=== PATIENT | male | born 1990 | race Two or more races ===

== ENCOUNTER 2018-01-21 02:29 | Emergency (ER) | payer SELFPAY ==
[2018-01-21 02:37] VITALS: BP 145/88; PULSE 91; RESP 17; TEMP 97.6; O2SAT 100
--- NOTE | 2018-01-21 03:52 | ED PDOC ---
HPI: Psych/Substance Abuse Time Seen by Provider: 01/21/18 02:42 Chief Complaint (Nursing): Alcohol Ingestion Chief Complaint (Provider): Alcohol Ingestion History Per: Patient History/Exam Limitations: no limitations Onset/Duration Of Symptoms: Hrs Current Symptoms Are (Timing): Still Present Suicide/Self Injury Attempted (Context): None Modifying Factor(s): Alcohol Additional Complaint(s): 27 y/o male with a history of alcohol abuse presents to the ED for public intoxication. Patient admits to drinking tonight. Patient states he was too intoxicated to walk home and therefore fell asleep in front of bushes by the bar where he was previously drinking. At this time, patient states he wants to go home. Denies drug use and head trauma. PMD: none Past Medical History Vital Signs: Last Vital Signs Temp 97.6 F 01/21/18 02:35 Pulse 91 H 01/21/18 02:35 Resp 17 01/21/18 02:35 BP 145/88 01/21/18 02:35 Pulse Ox 100 01/21/18 02:35 - Medical History PMH: No Chronic Diseases - Surgical History Surgical History: No Surg Hx - Family History Family History: States: Unknown Family Hx - Social History Alcohol: > 2 Drinks/Day - Allergies Allergies/Adverse Reactions: Allergies Allergy/AdvReac Type Severity Reaction Status Date / Time No Known Allergies Allergy Verified 01/21/18 02:37 Review of Systems ROS Statement: Except As Marked, All Systems Reviewed And Found Negative Psych: Positive for: Other (Public Alcohol Intoxication) Physical Exam - Reviewed Nursing Documentation Reviewed: Yes Vital Signs Reviewed: Yes - Physical Exam Appears: Positive for: No Acute Distress (but intoxicated appearing) Head Exam: Positive for: ATRAUMATIC, NORMOCEPHALIC Skin: Positive for: Normal Color, Warm, Dry Eye Exam: Positive for: Normal appearance, EOMI, PERRL Neck: Positive for: Normal, Painless ROM Cardiovascular/Chest: Positive for: Regular Rate, Rhythm. Negative for: Murmur Respiratory: Positive for: Normal Breath Sounds. Negative for: Respiratory Distress Gastrointestinal/Abdominal: Positive for: Normal Exam, Soft. Negative for: Tenderness Extremity: Positive for: Normal ROM. Negative for: Deformity Neurologic/Psych: Positive for: Alert, Oriented (x3), Gait (steady). Negative for: Motor/Sensory Deficits - ECG O2 Sat by Pulse Oximetry: 100 Medical Decision Making Medical Decision Making: Time: 241 A/P: 27 y/o male presenting with alcohol intoxication -- No signs of injury -- Patient is alert and oriented (x3) -- Patient is stable for discharge home. Scribe Attestation: Documented by Arpit Ibanez, acting as a scribe for Catracho Oliva MD. Provider Scribe Attestation: All medical record entries made by the Scribe were at my direction and personally dictated by me. I have reviewed the chart and agree that the record accurately reflects my personal performance of the history, physical exam, medical decision making, and the department course for this patient. I have also personally directed, reviewed, and agree with the discharge instructions and disposition. Disposition - Clinical Impression Clinical Impression: Alcohol abuse - Patient ED Disposition Is Patient to be Admitted: No Counseled Patient/Family Regarding: Diagnosis, Need For Followup - Disposition Referrals: Alcoholics Anonymous [Outside] Disposition: Routine/Home Disposition Time: 02:54 Condition: STABLE Instructions: Alcohol Abuse and Alcoholism (DC) Forms: [employer] [facility] [employer] ([place]ic)
== END 2018-01-21 02:55 | disposition home or self-care (01) ==
LOC: H.ER 02:29
DX: F10.129 Alcohol abuse with intoxication, unspecified (principal)